=== PATIENT | female | born 2005 | race Caucasian/White ===

== ENCOUNTER → 2023-02-25 | Outpatient (CLI) | payer BC ==
--- NOTE | 2023-02-25 12:25 | US ---
EXAMINATION TYPE: US pelvic complete DATE OF EXAM: 02/25/2023 COMPARISON: NONE CLINICAL INDICATION: Female, 17 years old with history of N94.6 DYSMENORRHEA, UNSPECIFIED; Painful pe riods. Patient states she is having no other pain or symptoms and not on any form of hormonal c ontrol. TECHNIQUE: Transvaginal (TV) and Transabdominal (TA) . Transabdominal sonographic images of the pel vis were acquired. Transvaginal sonographic images were medically necessary to better assess the fol lowing anatomy: Date of LMP: 02/18/2023 EXAM MEASUREMENTS: Uterus: 7.4 x 4.3 x 5.0 cm Endometrial Stripe: 1.3 cm Right Ovary: 3.6 x 1.6 x 2.7 cm Left Ovary: 2.8 x 2.0 x 2.6 cm Marketing Strategy Lead notes:Slightly limited due to overlying bowel gas 1. Uterus: Anteverted. wnl as best visualized 2. Endometrium: Measuring at the upper limits of normal in thickness 3. Right Ovary: Follicular change is present. 4. Left Ovary: Follicular change is present. 5. Bilateral Adnexa: Obscured by overlying bowel gas 6. Posterior cul-de-sac: There is a 4.2 x 0.9cm area of free fluid seen adjacent to the left ovary. IMPRESSION: 1. Follicular change in both ovaries. 2. Endometrial stripe thickness of 1.3 cm should correspond to the secretory phase of the menstrual c ycle. Clinically correlate. 3. Mild to moderate cul-de-sac/left adnexal free fluid likely physiologic.
== END | disposition home or self-care (01) ==
LOC: RADUSWWP 09:34
PROVIDERS: ATTEND Family Medicine
DX: N94.6 Dysmenorrhea, unspecified (principal); N83.8 Other noninflammatory disorders of ovary, fallopian tube and broad ligament
CPT/HCPCS: 76856